=== PATIENT | female | born 1995 | race Caucasian/White ===

== ENCOUNTER 2018-06-16 20:30 | Inpatient (IN) | payer OTHER ==
[2018-06-16] MEDS: ELECTROLYTE-148 SOLN 1,000 ML IV SCH (21:00)
[2018-06-16] MEDS ORDERED: AMPICILLIN - 2 GM in SODIUM CHLORIDE 100 ML IVPB ONE (21:35)
--- NOTE | 2018-06-16 21:43 | HP ---
Past Medical History - Admission Chief Complaint: SROM History of Present Illness: 22yo @ 37.2wks by LMP/sono here with SROM. No VB/LOF, irreg ctx Preg c/b GBS positive PNC @ [facility] Hayley Alberto History Source: Patient Limitations to Obtaining History: No Limitations - Past Medical History [employer]: No: Alzheimer's, CVA, Dementia, Migraine, Multiple Sclerosis, Peripheral Neuropathy, Parkinson's, Seizure, Syncope, TIA, Vertigo, Other Cardiovascular: No: AFIB, Aneurysm, Aortic Insufficiency, Aortic Stenosis, CAD, CHF, Deep Vein Thrombosis, HTN, Hyperlipdemia, IL, Mitral Insufficiency, Mitral Stenosis, Murmur, Pulmonary Hypertension, Other Gastrointestinal: No: Ascites, Cancer, Constipation, Crohn's Disease, Diverticulitis, Diverticulosis, Esophageal Varices, Gastritis, GERD, GI Bleed, Hemorrhoids, Hiatal Hernia, Inflamatory Bowel Disease, Irritable Bowel Disease, Pancreatitis, Peptic Ulcer Disease, Ulcerative Colitis, Other Hepatobiliary: No: Cirrhosis, Cholelithiasis, Cholecystitis, Choledocholithiasis , Hepatitis A, Hepatitis B, Hepatitis C, Other Renal/: No: Renal Failure, Renal Inusuff, BPH, Cancer, Hematuria, Hemodialysis , Neurogenic Bladder, Renal Calculi, UTI, Other Heme/Onc: No: Anemia, B12 Deficiency, Bleeding Disorder, Cancer, Current Chemotherapy, Current Radiation Therapy, Hemochromatosis, Hypercoaguable State, Myeloproliferative Synd, Sickle Cell Disease, Sickle Cell Trait, Thrombocytopenia, Other - Past Surgical History Past Surgical History: Yes: None Hx Myomectomy: No Hx Transabdominal Cerclage: No - Smoking History Smoking history: Never smoked - Social History History of Recent Travel: No Home Medications - Allergies Allergies/Adverse Reactions: Allergies Allergy/AdvReac Type Severity Reaction Status Date / Time No Known Allergies Allergy Verified 11/06/17 09:18 - Home Medications Home Medications: Ambulatory Orders Ferrous Gluconate 1 tab PO DAILY 05/24/18 One Tablet 1 tab PO DAILY 05/24/18 Physical Exam - Maternity Constitutional: Yes: Well Nourished, No Distress, Calm Cardiovascular: Yes: Regular Rate and Rhythm - Abdominal Exam/OB Number of Fetuses: Single Presentation: Vertex Contractions: Yes Regularity: Irregular Intensity: Mild Monitor Mode: Auscultation (Fetoscope) Heart Rate Location: [facility] Category: I Accelerations: Non-Uniform Decelerations: None - Vaginal Exam/OB Vaginal Bleediing: No Dilatation (cm): 1 Effacement (%): 0 Amniotic Membrane Status: Ruptured Nitrazine Test: Positive Amniotic Fluid: Yes: Clear Presentation: Vertex/Position Assessment/Plan 22yo @ 37.2wks with SROM Admit to L&D NPO, IVFs Amp for GBS Cat 1 tracing Stadol/epidural Pitocin prn Ryan Zhong
[2018-06-16] MEDS ORDERED: BUTORPHANOL TARTRATE 2 MG/ML VIAL IVPB ONE (21:45)
[2018-06-16] MEDS ORDERED: AMPICILLIN SODIUM 2 GM VIAL ONE (22:24)
[2018-06-16 22:56] LABS: ANION GAP 7 MMOL/L (8-16); BLOOD UREA NITROGEN 10 mg/dL (7-18); CALCIUM 8.9 mg/dL (8.5-10.1); CHLORIDE 107 mmol/L (98-107); CO2 24 mmol/L (21-32); CREATININE 0.5 mg/dL (0.55-1.3); GLUCOSE,RANDOM 92 mg/dL (74-106); POTASSIUM 3.9 mmol/L (3.5-5.1); SODIUM 138 mmol/L (136-145)
[2018-06-16 23:20] LABS: BASO % 0.1 % (0-2.0); EOS % 0.5 % (0-4.5); HEMATOCRIT 36.1 % (32.4-45.2); HEMOGLOBIN 12.2 GM/dL (10.7-15.3); LYMPH % 27.8 % (8-40); MCH 30.7 pg (25.7-33.7); MCHC 33.8 g/dl (32.0-36.0); MEAN CELL VOLUME 90.7 fl (80-96); MEAN PLT VOLUME 11.5 fl (7.5-11.1); MONO % 10.1 % (3.8-10.2); NEUT % 61.5 % (42.8-82.8); PLATELET COUNT 194 K/MM3 (134-434); RBC 3.98 M/mm3 (3.60-5.2); RDW 13.4 % (11.6-15.6); WHITE BLOOD COUNT 8.4 K/mm3 (4.0-10.0)
[2018-06-16 23:23] LABS: INR 0.92 (0.83-1.09); PROTHROMBIN TIME (PATIENT) 10.9 SEC (9.7-13.0)
[2018-06-16 23:42] VITALS: BMI 25.2
[2018-06-17] MEDS ORDERED: AMPICILLIN SODIUM 1 GM VIAL ONE ×4 (01:56→13:48)
[2018-06-17] MEDS: AMPICILLIN - 1 GM in SODIUM CHLORIDE 100 ML IVPB SCH ×4 (02:00→13:50)
[2018-06-17] MEDS: ELECTROLYTE-148 SOLN 1,000 ML IV SCH ×3 (05:00→14:30)
[2018-06-17] MEDS ORDERED: PROMETHAZINE HCL 25 MG/1 ML VIAL ONE ×2 (05:18→08:28)
[2018-06-17] MEDS ORDERED: BUTORPHANOL TARTRATE 2 MG/ML VIAL ONE ×2 (05:18→08:28)
[2018-06-17] MEDS ORDERED: PROMETHAZINE HCL 25 MG/1 ML VIAL IVPB ONE (09:10)
[2018-06-17] MEDS ORDERED: BUTORPHANOL TARTRATE 2 MG/ML VIAL IVPB ONE (09:10)
[2018-06-17] MEDS ORDERED: FENTANYL/BUPIVACAINE/NS/PF - PCEA - 50 ML DISP.SYRIN EP ONE (10:44)
--- NOTE | 2018-06-17 10:44 | PN ---
Progress Note, Labor Vaginal Exam #1 Labor Exam Date: 06/17/18 Labor Exam Time: 10:44 Heart Rate (range): Cat I Dilatation: 5 Effacement (%): 100 Amniotic Membrane Status: Ruptured Presentation: Vertex/Position Station: -1 Remarks: Epidural Cat I Anticipate
[2018-06-17] MEDS ORDERED: NALOXONE HCL 0.4 MG/ML VIAL IVPUSH PRN (11:31)
[2018-06-17] MEDS ORDERED: FENTANYL/BUPIVACAINE/NS/PF - PCEA - 50 ML DISP.SYRIN EP SCH (11:45)
[2018-06-17] MEDS ORDERED: OXYTOCIN 20 UNITS in 0.9% NS 20 UNIT/1,000 ML INFUS.BAG IV ONE ×2 (14:55→19:52)
[2018-06-17] MEDS ORDERED: LIDOCAINE HCL 1% PRESERVATIVE FREE - 30ML VIAL ONE (14:56)
[2018-06-17] MEDS: OXYTOCIN 20 UNITS in 0.9% NS 20 UNIT/1,000 ML INFUS.BAG IV SCH ×2 (16:00→19:52)
[2018-06-17] MEDS ORDERED: BENZOCAINE 28 GM HEMORRHOIDAL OINTMENT TP PRN (16:06)
[2018-06-17] MEDS ORDERED: WITCH HAZEL 50% (TUCKS) 40 PAD/JAR PAD TP PRN (16:06)
[2018-06-17] MEDS ORDERED: BISACODYL 10 MG SUPP.RECT RC PRN (16:06)
--- NOTE | 2018-06-17 16:12 | PN ---
Delivery - Delivery Vaginal Delivery: Spontaneous Type of Anesthesia: Epidural Episiotomy/Laceration: 3rd degree Delivery, Single - Feeding Plan Initial Plan: Elected not to breastfeed exclusively throughout hospitalization Remarks - Remarks Remarks: Normal spontaneous vaginal delivery of a live girl over third degree laceration. Nose / Oropharynx suctioned @ perineum. Cord clamped and cut. Baby handed to nurse. Placenta expelled spontaneously intact. Laceration repaired with 2.0 Chromic, and 2.0 vycryl.
[2018-06-17] MEDS: IBUPROFEN 600 MG TABLET (FP) PO PRN (23:30)
[2018-06-17] MEDS: ACETAMINOPHEN 325 MG TABLET (FP) PO PRN (23:30)
[2018-06-17] MEDS: BENZOCAINE 20% 57 GM BOTTLE TP PRN (23:31)
[2018-06-17] MEDS: FERROUS SO4 325 MG TABLET (FP) PO SCH (23:31)
[2018-06-17] MEDS: METHYLERGONOVINE MALEATE 0.2 MG/1 ML AMP IM PRN (23:31)
[2018-06-18] MEDS: METHYLERGONOVINE MALEATE 0.2 MG/1 ML AMP IM PRN (03:36)
[2018-06-18] MEDS: SENNOSIDES/DOCUSATE COMBO (SENNA PLUS) TABLET (UD) PO PRN ×2 (03:37→21:52)
--- NOTE | 2018-06-18 07:49 | PN ---
Post Progress Note - Subjective Subjective: 22 yo Para 1 status post vaginal delivery, seen and evaluated. Doing well Post Day: 1 Type of Delivery: Vital Signs: Vital Signs Temperature 97.8 F 06/18/18 06:34 Pulse Rate 58 L 06/18/18 06:34 Respiratory Rate 18 06/18/18 06:34 Blood Pressure 104/64 06/18/18 03:31 O2 Sat by Pulse Oximetry (%) 100 06/17/18 16:10 Breast Exam: Yes: Soft Uterus: Yes: Fundus Firm Abdomen/GI: Yes: Tolerating PO Lochia: Yes: Rubra Lochia, amount: Small Extremities: Yes: Calves non-tender Perineum: Yes: Intact Activity: Ambulating - Labs Labs: CBC WBC 8.4 K/mm3 (4.0-10.0) 06/16/18 21:50 RBC 3.98 M/mm3 (3.60-5.2) 06/16/18 21:50 Hgb 12.2 GM/dL (10.7-15.3) 06/16/18 21:50 Hct 36.1 % (32.4-45.2) 06/16/18 21:50 MCV 90.7 fl (80-96) 06/16/18 21:50 MCH 30.7 pg (25.7-33.7) 06/16/18 21:50 MCHC 33.8 g/dl (32.0-36.0) 06/16/18 21:50 RDW 13.4 % (11.6-15.6) 06/16/18 21:50 Plt Count 194 K/MM3 (134-434) 06/16/18 21:50 MPV 11.5 fl (7.5-11.1) H 06/16/18 21:50 Absolute Neuts (auto) 5.1 K/mm3 (1.5-8.0) 06/16/18 21:50 Neutrophils % 61.5 % (42.8-82.8) 06/16/18 21:50 Lymphocytes % 27.8 % (8-40) 06/16/18 21:50 Monocytes % 10.1 % (3.8-10.2) 06/16/18 21:50 Eosinophils % 0.5 % (0-4.5) 06/16/18 21:50 Basophils % 0.1 % (0-2.0) 06/16/18 21:50 Nucleated RBC % 0 % (0-0) 06/16/18 21:50 Problem List - Problems (1) Status post normal vaginal delivery Code(s): [id number] - Assessment/Plan Normal spontaneous vaginal delivery Stable Consider routine care
[2018-06-18 09:50] LABS: BASO % 0.1 % (0-2.0); EOS % 0.9 % (0-4.5); HEMATOCRIT 32.8 % (32.4-45.2); HEMOGLOBIN 11.2 GM/dL (10.7-15.3); LYMPH % 16.9 % (8-40); MCH 31.1 pg (25.7-33.7); MCHC 34.1 g/dl (32.0-36.0); MEAN CELL VOLUME 91.2 fl (80-96); MEAN PLT VOLUME 11.1 fl (7.5-11.1); MONO % 11.2 % (3.8-10.2); NEUT % 70.9 % (42.8-82.8); PLATELET COUNT 133 K/MM3 (134-434); RDW 13.2 % (11.6-15.6); WHITE BLOOD COUNT 12.4 K/mm3 (4.0-10.0)
[2018-06-18] MEDS: ACETAMINOPHEN 325 MG TABLET (FP) PO PRN ×2 (10:06→19:47)
[2018-06-18] MEDS: IBUPROFEN 600 MG TABLET (FP) PO PRN ×2 (10:06→19:48)
[2018-06-18] MEDS: PRENATAL VITAMINS W/ FOLIC ACID TABLET (FP) PO SCH (10:06)
[2018-06-18] MEDS: FERROUS SO4 325 MG TABLET (FP) PO SCH ×2 (10:06→21:53)
[2018-06-18] MEDS: BENZOCAINE 20% 57 GM BOTTLE TP PRN (19:48)
[2018-06-19] MEDS: BENZOCAINE 20% 57 GM BOTTLE TP PRN (10:19)
[2018-06-19] MEDS: PRENATAL VITAMINS W/ FOLIC ACID TABLET (FP) PO SCH (10:19)
[2018-06-19] MEDS: IBUPROFEN 600 MG TABLET (FP) PO PRN (10:20)
[2018-06-19] MEDS: FERROUS SO4 325 MG TABLET (FP) PO SCH (10:20)
[2018-06-19] MEDS: ACETAMINOPHEN 325 MG TABLET (FP) PO PRN (10:20)
[2018-06-19 11:23] VITALS: BP 112/58; PULSE 78; TEMP 97.6
--- NOTE | 2018-06-19 11:26 | DS ---
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 Vital Signs: Vital Signs Temperature 97.6 F 06/19/18 10:00 Pulse Rate 78 06/19/18 10:00 Respiratory Rate 20 06/19/18 10:00 Blood Pressure 112/58 L 06/19/18 10:00 O2 Sat by Pulse Oximetry (%) 100 06/19/18 09:00 Constitutional: Yes: Well Nourished, No Distress, Calm Eyes: Yes: WNL, Conjunctiva Clear, EOM Intact HENT: Yes: WNL, Atraumatic, Normocephalic Neck: Yes: WNL, Supple, Trachea Midline Cardiovascular: Yes: WNL, Regular Rate and Rhythm Respiratory: Yes: WNL, Regular, CTA Bilaterally Gastrointestinal: Yes: WNL ...Rectal Exam: Yes: WNL Renal/: Yes: WNL ....Post : Yes: Uterus firm, Uterus non-tender, Slight lochia rubra Breast(s): Yes: WNL Musculoskeletal: Yes: WNL Extremities: Yes: WNL Edema: No Integumentary: Yes: WNL Neurological: Yes: WNL, Alert, Oriented ...Motor Strength: WNL Psychiatric: Yes: WNL, Alert, Oriented Labs: CBC, BMP 06/18/18 09:03 06/16/18 21:50 Delivery - Delivery Vaginal Delivery: Spontaneous Type of Anesthesia: Epidural Episiotomy/Laceration: 3rd degree EBL (cc): 300 Delivery, Single - Stages of Labor Date 1st Stage Initiatied: 06/16/18 Time 1st Stage Initiated: 19:00 Date 2nd Stage Initiated: 06/17/18 Time 2nd Stage Initiated: 15:00 Date of Delivery: 06/17/18 Time of Delivery: 15:43 Time Placenta Delivered: 15:55 Placenta: Yes: Spontaneous - 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 Gender: Female Weight: 6 lb 3 oz Position: Right, OA Total Hours ROM (Hrs/Mins): 20h55m - 1 Minute Total Score: 9 5 Minutes Total Score: 9 - Kiana Feeding Plan Initial Plan: Elected not to breastfeed exclusively throughout hospitalization Discharge Summary Reason For Visit: LABOR Current Active Problems Status post normal vaginal delivery (Acute) Other Procedures: Condition: Good - Instructions Diet, Activity, Other Instructions: regular diet, follow up [facility] care 4 weeks, if fever,pain ,heavy vaginal bleeding call MD Referrals: Radha Zhong MD [Staff Physician] - Disposition: HOME - Home Medications Comprehensive Discharge Medication List: Ambulatory Orders Ferrous Gluconate 1 tab PO DAILY 05/24/18 One Tablet 1 tab PO DAILY 05/24/18 Docusate Sodium [Colace] 100 mg PO AM PRN #30 capsule 06/19/18 Ibuprofen [Motrin -] 600 mg PO TID #21 tablet 06/19/18
== END 2018-06-19 12:45 | disposition home or self-care (01) | DRG 542 ==
LOC: JLDR 20:30 → J3W 06-17 21:19
PROVIDERS: ADMIT Obstetrics & Gynecology; ATTEND Obstetrics & Gynecology
PROC: 10E0XZZ Delivery of Products of Conception, External Approach (ICD-10-PCS; principal; 2018-06-17)
PROC: 0DQR0ZZ Repair Anal Sphincter, Open Approach (ICD-10-PCS; 2018-06-17)
PROC: 0W8NXZZ Division of Female Perineum, External Approach (ICD-10-PCS; 2018-06-17)
DX: O70.20 Third degree perineal laceration during delivery, unspecified (principal); Z3A.37 37 weeks gestation of pregnancy; Z22.330 Carrier of Group B streptococcus; Z37.0 Single live birth
CPT/HCPCS: 36415; 59409; 80048; 85025; 85610; 85730; 86593; 86850; 86900; 86901; 87389

== ENCOUNTER 2020-05-11 11:23 | Emergency (ER) | payer OTHER ==
[2020-05-11 11:29] VITALS: BP 109/59; PULSE 69; TEMP 98; BMI 21.1
[2020-05-11] MEDS ORDERED: MAG HYDROX/AL HYDROX/SIMETH 30 ML UNIT-DOSE CUP PO ONE (12:07)
[2020-05-11] MEDS ORDERED: FAMOTIDINE 20 MG TABLET PO ONE (12:07)
[2020-05-11] MEDS ORDERED: MAG HYDROX/AL HYDROX/SIMETH 30 ML UNIT-DOSE CUP ONE (12:09)
[2020-05-11] MEDS ORDERED: FAMOTIDINE 20 MG TABLET ONE (12:09)
== END 2020-05-11 13:22 | disposition home or self-care (01) ==
LOC: JER 11:23
DX: R10.10 Upper abdominal pain, unspecified (principal)
CPT/HCPCS: 99283-25

== ENCOUNTER 2023-01-23 01:50 | Inpatient (IN) | payer OTHER ==
[2023-01-23] MEDS ORDERED: AMPICILLIN - 2 GM in SODIUM CHLORIDE 100 ML IVPB ONE (02:45)
[2023-01-23] MEDS: ELECTROLYTE-148 SOLN 1,000 ML IV SCH ×2 (02:50→08:30)
[2023-01-23] MEDS ORDERED: AMPICILLIN SODIUM 2 GM VIAL ONE (02:55)
[2023-01-23 03:03] LABS: BASO % 0.7 % (0-2.0); EOS % 1.2 % (0-4.5); HEMATOCRIT 32.5 % (32.4-45.2); HEMOGLOBIN 11.1 GM/dL (10.7-15.3); LYMPH % 31.8 % (8-40); MCH 27.2 pg (25.7-33.7); MCHC 34.1 g/dl (32.0-36.0); MEAN CELL VOLUME 79.8 fl (80-96); MEAN PLT VOLUME 10.4 fl (7.5-11.1); MONO % 10.7 % (3.8-10.2); NEUT % 55.6 % (42.8-82.8); PLATELET COUNT 209 10^3/uL (134-434); RBC 4.07 M/mm3 (3.60-5.2); RDW 15.4 % (11.6-15.6); WHITE BLOOD COUNT 7.8 K/mm3 (4.0-10.0)
[2023-01-23 03:14] LABS: INR 0.96 (0.83-1.09); PROTHROMBIN TIME (PATIENT) 11.1 SEC (9.7-13.0)
[2023-01-23 03:17] LABS: ACTIVATED PTT 24.5 SECONDS (25.2-36.5)
[2023-01-23 03:22] VITALS: BMI 31.9
[2023-01-23 03:58] LABS: CALCIUM 9.1 mg/dL (8.5-10.1)
[2023-01-23 03:59] LABS: BLOOD UREA NITROGEN 12.8 mg/dL (7-18)
[2023-01-23 04:02] LABS: CREATININE 0.6 mg/dL (0.55-1.3)
[2023-01-23] MEDS ORDERED: AMPICILLIN SODIUM 1 GM VIAL ONE ×3 (06:43→14:40)
[2023-01-23] MEDS: AMPICILLIN - 1 GM in SODIUM CHLORIDE 100 ML IVPB SCH ×3 (06:45→14:44)
[2023-01-23] MEDS ORDERED: OXYTOCIN 30 UNITS in 0.9% NS 30 UNIT/500 ML INFUS.BAG IVPB ONE (07:39)
[2023-01-23] MEDS: OXYTOCIN 30 UNITS in 0.9% NS 30 UNIT/500 ML INFUS.BAG IVPB SCH (08:28)
[2023-01-23] MEDS ORDERED: FENTANYL/BUPIVACAINE/NS/PF - PCEA - 50 ML DISP.SYRIN EP ONE (12:15)
[2023-01-23] MEDS ORDERED: BUPIVACAINE HCL/PF 0.25% (2.5MG/ML) 10 ML VIAL ONE (12:24)
[2023-01-23] MEDS ORDERED: LIDOCAINE HCL/EPINEPHRINE/PF 10 ML VIAL ONE (12:24)
[2023-01-23] MEDS ORDERED: NALOXONE HCL 0.4 MG/ML VIAL IVPUSH PRN (12:43)
[2023-01-23] MEDS: FENTANYL/BUPIVACAINE/NS/PF - PCEA - 50 ML DISP.SYRIN EP SCH (12:45)
[2023-01-23 13:10] VITALS: RESP 18
[2023-01-23] MEDS ORDERED: OXYTOCIN 20 UNITS in 0.9% NS 20 UNIT/1,000 ML INFUS.BAG IV ONE (14:06)
[2023-01-23] MEDS ORDERED: oxyCODONE HCL 5 MG TABLET PO PRN (15:28)
[2023-01-23] MEDS ORDERED: ACETAMINOPHEN 325 MG TABLET (FP) PO PRN (15:28)
[2023-01-23] MEDS ORDERED: BENZOCAINE 28 GM HEMORRHOIDAL OINTMENT TP PRN (15:28)
[2023-01-23] MEDS ORDERED: BISACODYL 10 MG SUPP.RECT RC PRN (15:28)
[2023-01-23] MEDS ORDERED: METHYLERGONOVINE MALEATE 0.2 MG/1 ML AMP IM PRN (15:28)
[2023-01-23] MEDS ORDERED: BENZOCAINE 20% 57 GM BOTTLE TP PRN (15:28)
[2023-01-23] MEDS ORDERED: WITCH HAZEL 50% (TUCKS) 40 PAD/JAR PAD TP PRN (15:28)
[2023-01-23] MEDS ORDERED: OXYTOCIN 20 UNITS in 0.9% NS 20 UNIT/1,000 ML INFUS.BAG IV SCH (15:30)
[2023-01-23 15:42] LABS: CORD BASE EXCESS -2.8 mmol/L (0-2); CORD HCO3 22.8 mmHg (20-29); CORD PCO2 42.4 mmHg (30-78); CORD pH 7.348 (7.14-7.44)
[2023-01-23 15:44] LABS: CORD BASE EXCESS -5.7 mmol/L (0-2); CORD HCO3 21.7 mmHg (20-29); CORD PCO2 48.8 mmHg (30-78); CORD pH 7.265 (7.14-7.44)
[2023-01-23] MEDS: IBUPROFEN 600 MG TABLET (FP) PO PRN (20:55)
[2023-01-24] MEDS: IBUPROFEN 600 MG TABLET (FP) PO PRN ×3 (03:01→20:55)
[2023-01-24 08:05] LABS: BASO % 0.1 % (0-2.0); EOS % 0.7 % (0-4.5); HEMATOCRIT 31.4 % (32.4-45.2); HEMOGLOBIN 10.1 GM/dL (10.7-15.3); LYMPH % 23.1 % (8-40); MCH 26.4 pg (25.7-33.7); MCHC 32.2 g/dl (32.0-36.0); MEAN PLT VOLUME 11.1 fl (7.5-11.1); MONO % 11.8 % (3.8-10.2); NEUT % 64.3 % (42.8-82.8); PLATELET COUNT 190 10^3/uL (134-434); RBC 3.83 M/mm3 (3.60-5.2); RDW 14.8 % (11.6-15.6)
[2023-01-24] MEDS: ELECTROLYTE-148 SOLN 1,000 ML IV SCH (08:06)
[2023-01-24] MEDS: OXYTOCIN 30 UNITS in 0.9% NS 30 UNIT/500 ML INFUS.BAG IVPB SCH (08:07)
[2023-01-24] MEDS: FENTANYL/BUPIVACAINE/NS/PF - PCEA - 50 ML DISP.SYRIN EP SCH (17:27)
[2023-01-24] MEDS ORDERED: SENNOSIDES/DOCUSATE COMBO (SENNA PLUS) TABLET (UD) PO PRN (22:00)
[2023-01-25] MEDS: IBUPROFEN 600 MG TABLET (FP) PO PRN ×2 (04:32→08:45)
[2023-01-25] MEDS: OXYTOCIN 30 UNITS in 0.9% NS 30 UNIT/500 ML INFUS.BAG IVPB SCH (07:50)
[2023-01-25 13:42] VITALS: BP 102/64; PULSE 60; TEMP 97.5
[2023-01-25] MEDS: FENTANYL/BUPIVACAINE/NS/PF - PCEA - 50 ML DISP.SYRIN EP SCH (13:43)
== END 2023-01-25 13:40 | disposition home or self-care (01) | DRG 560 ==
LOC: JLDR 01:50 → J3W 17:30
PROVIDERS: ADMIT Student in an Organized Health Care Education/Training Program; ATTEND Obstetrics & Gynecology
PROC: 10E0XZZ Delivery of Products of Conception, External Approach (ICD-10-PCS; principal; 2023-01-23)
PROC: 0HQ9XZZ Repair Perineum Skin, External Approach (ICD-10-PCS; 2023-01-23)
DX: O99.824 Streptococcus B carrier state complicating childbirth (principal); Z3A.39 39 weeks gestation of pregnancy; Z37.0 Single live birth; O70.0 First degree perineal laceration during delivery
CPT/HCPCS: 36415; 36600; 80048; 82803; 85025; 85610; 85730; 86780; 86850; 86900; 86901